=== PATIENT | male | born 1955 | race African-American/Black ===

== ENCOUNTER 2019-04-08 22:15 | Inpatient (IN) | payer MEDICAID ==
[~2019-04-08] VITALS: Ht 182.9 cm; Wt 133.4 kg
[2019-04-08] MEDS ORDERED: SODIUM CHLORIDE 0.9% 1,000 ML IV ONE (22:30)
[2019-04-08] MEDS ORDERED: ACETAMINOPHEN 500 MG TAB PO ONE (22:30)
[2019-04-08 23:49] LABS: Basophils # (auto) 0.1 10 ^3/uL (0-0.2); Eosinophils # (auto) 0 10 ^3/uL (0-0.8); Eosinophils % (auto) 0.1 % (0.0-7.0); Hematocrit 36.5 % (41.0-53.0); Hemoglobin 12.8 g/dL (13.5-17.5); Lymphocytes # (auto) 0.5 10 ^3/uL (0.4-5.4); Lymphocytes % (auto) 5.5 % (10.0-50.0); Mean Corpuscular Hemoglobin 30.5 pg (28.0-32.0); Mean Corpuscular Hgb Conc. 34.9 g/dL (32.0-36.0); Mean Corpuscular Volume 87.4 fL (80.0-100.0); Monocytes # (auto) 0.5 10 ^3/uL (0-1.3); Monocytes % (auto) 6.1 % (0.0-12.0); Neutrophils # (auto) 7.3 10 ^3/uL (1.6-8.6); Neutrophils % (auto) 87.3 % (37.0-80.0); Nucleated Red Blood Cells % 0.1 %; Platelet Count (auto) 72 10^3/uL (140-450); Red Blood Cells 4.18 10^6/uL (4.5-5.90); Red Cell Distribution Width 15.4 % (11.8-14.3); White Blood Cell 8.4 10^3/uL (4.4-10.8)
[2019-04-09 00:02] LABS: INR 1.3 (0.9-1.15); Partial Thromboplastin Time 31.8 sec (23.64-32.05)
[2019-04-09 00:07] LABS: Chloride 109 mmol/L (98-107); Potassium 3.9 mmol/L (3.5-5.1); Sodium 137 mmol/L (136-145)
[2019-04-09 00:13] LABS: Albumin 2.5 g/dL (3.4-5.0); Anion Gap 7 (5-15); BUN/Creatinine Ratio 19.3; Blood Urea Nitrogen 16 mg/dL (7-18); Calcium 8.2 mg/dL (8.5-10.1); Carbon Dioxide 21 mmol/L (21-32); GFR African American 120 mL/min; GFR Non-African American 99 mL/min; Glucose 119 mg/dL (74-106); Magnesium 1.6 mg/dL (1.6-2.6)
[2019-04-09 00:24] LABS: Urine Bacteria FEW /hpf (None Seen); Urine Blood 2+ /uL (Negative); Urine Mucus FEW (None Seen); Urine Specific Gravity 1.026 (1.001-1.035); Urine WBC 10 /hpf (0 - 3)
[2019-04-09 00:24] LABS: Alanine Aminotransferase 39 U/L (16-61); Alkaline Phosphatase 125 U/L (45-117); Aspartate Aminotransferase 40 U/L (15-37); Bilirubin, Total 3.6 mg/dL (0.2-1.0); Blood Alcohol < 3.0 mg/dL (0-5); Total Protein 5.8 g/dL (6.4-8.2)
[2019-04-09 00:38] LABS: Alcohol, Urine < 3.0 mg/dL (0-5); Amphetamine Screen, Urine NEGATIVE (NEGATIVE); Barbiturate Scree,Urine NEGATIVE (NEGATIVE); Benzodiazephine Screen, Urine NEGATIVE (NEGATIVE); Cannabinoid Screen, Urine NEGATIVE (NEGATIVE); Cocaine Screen, Urine NEGATIVE (NEGATIVE); Opiate Scree,Urine NEGATIVE (NEGATIVE); Phencyclidine Screen, Urine NEGATIVE (NEGATIVE)
[2019-04-09] MEDS ORDERED: NITROGLYCERIN 0.4 MG SL TAB SL PRN (02:45)
[2019-04-09] MEDS ORDERED: ONDANSETRON HCL 4 MG/2 ML VIAL IV PRN (02:45)
[2019-04-09] MEDS ORDERED: DEXTROSE (50%) 50ML SYRG IV PRN (02:45)
[2019-04-09] MEDS ORDERED: MORPHINE SULF INJ 2 MG/ML SYRINGE 1ML IV PRN (02:45)
[2019-04-09 04:00] VITALS: BP 109/62
--- NOTE | 2019-04-09 04:00 | NUR ---
Telemetry admit from ER LESLIE CARBAJAL admitted to Telemetry unit after SBAR received. Patient oriented to Angela Rodriguez, primary RN, unit, room, bed, and unit policies regarding patient care and visiting hours. Patient now on continuous telemetry monitoring, tele box # 12 and telemetry reading on arrival to unit is 73. Patient placed on bedside oxygen, weighed by bedscale and encouraged to call if they need something. All questions and concerns addressed, patient verbalized understanding. Note:
[2019-04-09] MEDS ORDERED: LACT10PA2 PO (04:51)
[2019-04-09] MEDS ORDERED: RIFA550T PO (04:51)
[2019-04-09] MEDS ORDERED: ATOR40TA52 PO (04:51)
[2019-04-09] MEDS ORDERED: METO25TA5 PO (04:51)
[2019-04-09 05:54] VITALS: BP 109/62
[2019-04-09] MEDS: InsuLIN REG 1unit/0.01ml Soln (100units/ml) SC SCH ×4 (06:05→21:29)
[2019-04-09] MEDS: ACCU-CHEK COMFORT CURVE STRIP VI SCH ×4 (06:05→21:30)
--- NOTE | 2019-04-09 08:00 | NUR ---
Opening Shift Note Assumed care of patient, awake and alert to self, place, and time. No S/S of distress/SOB or pain. Instructed on POC and to call for assist PRN, will continue to monitor for changes Q1hr and PRN. Bed alarm on for safety.
[2019-04-09 09:00] VITALS: BP 164/91
[2019-04-09] MEDS: FAMOTIDINE 20 MG TAB PO SCH ×2 (09:31→21:30)
[2019-04-09] MEDS: cefTRIAXone 1GM/50ML D5W 50 ML IV SCH (09:31)
[2019-04-09] MEDS: METOPROLOL SUCCINATE XL 50 MG TAB PO SCH (09:37)
[2019-04-09] MEDS ORDERED: LACTULOSE 20Gm/30ML SOLN PO SCH (10:00)
[2019-04-09] MEDS: rifAXIMin 550 MG TAB PO SCH ×2 (10:28→21:30)
[2019-04-09 13:00] VITALS: BP 141/77
[2019-04-09] MEDS ORDERED: FUROSEMIDE 40 MG/4 ML VIAL IV ONE (14:00)
[2019-04-09] MEDS ORDERED: ACETAMINOPHEN 325 MG TAB PO PRN (14:00)
[2019-04-09] MEDS ORDERED: POTASSIUM CHL 20 Meq TABLET PO ONE (14:00)
[2019-04-09] MEDS: LACTULOSE 20Gm/30ML SOLN PO SCH ×2 (16:26→21:29)
--- NOTE | 2019-04-09 16:30 | NUR ---
Patient alert and ambulating in room. Patient was encouraged to call for assistance, appears weak on his feet. Patient attempting stated that he feels much better now.
[2019-04-09 17:00] VITALS: BP 128/86
--- NOTE | 2019-04-09 17:30 | NUR ---
Patient in room uncomplaining. Stated that he does not take insulin at home, informed him of the sliding scale policy and that metformin is usually held during admission.
--- NOTE | 2019-04-09 18:35 | NUR ---
Authorization for disclosure of health information Patient signed form and it was faxed to [facility]. Will notify maintenance technician 3rd shift RN to follow up in the AM.
--- NOTE | 2019-04-09 19:47 | NUR ---
received pt from day rn poc reviewed
[2019-04-09 21:39] VITALS: BP 104/56
--- NOTE | 2019-04-10 00:33 | NUR ---
resting with eyes closed resp even and unlabored, call light within reach bed alarm intact
[2019-04-10 05:00] VITALS: BP 101/66
[2019-04-10] MEDS: LACTULOSE 20Gm/30ML SOLN PO SCH ×5 (05:37→22:00)
[2019-04-10 06:07] LABS: Hemoglobin 11.8 g/dL (13.5-17.5); Red Cell Distribution Width 15.2 % (11.8-14.3)
[2019-04-10 06:11] LABS: Hematocrit 33.6 % (41.0-53.0); Mean Corpuscular Hemoglobin 30.5 pg (28.0-32.0); Mean Corpuscular Hgb Conc. 35.2 g/dL (32.0-36.0); Mean Corpuscular Volume 86.7 fL (80.0-100.0); Platelet Count (auto) 54 10^3/uL (140-450); Red Blood Cells 3.87 10^6/uL (4.5-5.90); White Blood Cell 4.1 10^3/uL (4.4-10.8)
[2019-04-10] MEDS: InsuLIN REG 1unit/0.01ml Soln (100units/ml) SC SCH ×4 (06:14→22:25)
[2019-04-10] MEDS: ACCU-CHEK COMFORT CURVE STRIP VI SCH ×4 (06:15→22:26)
[2019-04-10 06:18] LABS: Albumin 2.4 g/dL (3.4-5.0); Calcium 8.2 mg/dL (8.5-10.1); Potassium 3.8 mmol/L (3.5-5.1)
[2019-04-10 06:22] LABS: Total Protein 5.4 g/dL (6.4-8.2)
--- NOTE | 2019-04-10 06:45 | NUR ---
REPORT GIVEN TO AM NURSE POC REVIEWED
[2019-04-10 07:01] LABS: Band Neutrophils % (manual) 0; Basophils % (manual) 0 (0.0-2.0); Blast Cells 0; Metamyelocytes % 0; Myelocytes % 0; Promyelocytes % 0; Reactive Lymphocytes 0
[2019-04-10 08:10] LABS: Eosinophils % (manual) 1 (0-7); Lymphocytes % (manual) 13 (10.0-50.0); Monocytes % (manual) 5 (0-12)
[2019-04-10 09:00] VITALS: BP 112/66
[2019-04-10] MEDS ORDERED: FUROSEMIDE 40 MG TAB PO ONE (11:15)
[2019-04-10] MEDS: cefTRIAXone 1GM/50ML D5W 50 ML IV SCH (11:30)
[2019-04-10] MEDS: METOPROLOL SUCCINATE XL 50 MG TAB PO SCH (11:30)
[2019-04-10] MEDS: FAMOTIDINE 20 MG TAB PO SCH ×2 (11:31→22:24)
[2019-04-10] MEDS: rifAXIMin 550 MG TAB PO SCH ×2 (12:05→22:24)
[2019-04-10 13:00] VITALS: BP 104/63
--- NOTE | 2019-04-10 13:45 | NUR ---
F/C DISCONTINUED PER MD ORDERS Addendum: 04/10/19 at 1346 by AYE SANCHEZ RN F/C DISCONTINUED AT 1215.
[2019-04-10 16:31] VITALS: BP 99/54
--- NOTE | 2019-04-10 19:15 | NUR ---
RECEIVED PT FROM DAY RN POC REVIEWED
--- NOTE | 2019-04-10 19:39 | NUR ---
PUT PAGE TO STOCK WETTER HOSPITALIST. AWAITING RETURN CALL. ENDORSED TO ANDREW VERAS RN THAT CALL WAS PLACED D/T PATIENT COMPLAINTS OF CHEST PAIN. ANDREW IS AT BEDSIDE W/ MYSELF COMPETING THE ASSESSMENT AND EKG. 1 TAB 0.4 NITRO SL WAS GIVEN AT 1911. 1911- 10/16 PAIN, 189/97, 82HR 1916, 139/80 89HR. Addendum: 04/11/19 at 0056 by Susan Donaldson RN DAY RN CHARTED ON WRONG PT, PT NEVER HAD CHEST PAIN NOR WAS NITRO GIVEN
[2019-04-10 22:00] VITALS: BP 107/56
--- NOTE | 2019-04-11 00:52 | NUR ---
RESTING WITH EYES CLOSED RESP EVEN AND UNLABORED, NO C/O PAIN OR DISCOMFORT, CALL LIGHT WITHIN REACH
[2019-04-11] MEDS: LACTULOSE 20Gm/30ML SOLN PO SCH ×2 (04:00→08:58)
--- NOTE | 2019-04-11 04:00 | NUR ---
PT REFUSED LACTULOSE EDUCATED PT ON PURPOSE OF MED
[2019-04-11 05:00] VITALS: BP 90/58
[2019-04-11] MEDS: InsuLIN REG 1unit/0.01ml Soln (100units/ml) SC SCH ×2 (05:15→12:06)
[2019-04-11] MEDS: ACCU-CHEK COMFORT CURVE STRIP VI SCH ×2 (05:15→12:07)
--- NOTE | 2019-04-11 06:44 | NUR ---
REPORT GIVEN TO AM NURSE POC REVIEWED
--- NOTE | 2019-04-11 08:00 | NUR ---
ASSESSMENT NOTE PT IS ALERT ORIENTED X4, SITTING AT THE SIDE OF THE BED, PT IS TALL AND BIG, LARGE SOFT ABDOMEN NOTED, ONE PLUS EDEMA IN BOTH LOWER EXTREMITIES, PAIN 0/10 AT THIS TIME, CALL LIGHT WITHIN REACH, NEXT TO NURSING STATION
[2019-04-11] MEDS: METOPROLOL SUCCINATE XL 50 MG TAB PO SCH (08:58)
[2019-04-11] MEDS: FAMOTIDINE 20 MG TAB PO SCH (08:58)
[2019-04-11] MEDS: cefTRIAXone 1GM/50ML D5W 50 ML IV SCH (08:58)
[2019-04-11 09:06] VITALS: BP 104/49
[2019-04-11] MEDS: rifAXIMin 550 MG TAB PO SCH (09:14)
--- NOTE | 2019-04-11 09:15 | NUR ---
IV insertion IV access obtained, via clean sterile technique by inserting 22 gauge catheter at after attempt(s). IV secured properly. No trauma to site. Patient tolerated procedure well.
[2019-04-11] MEDS ORDERED: FUROSEMIDE 40 MG TAB PO SCH (10:00)
--- NOTE | 2019-04-11 10:53 | NUR ---
DR VILCHIS AT BED SIDE FOLLOWING UP ON PT WITH DISCHARGE ZAYRA, PT VERBALIS UNDERSTANDING
[2019-04-11 12:19] VITALS: BP 104/49
[2019-04-11 13:00] VITALS: BP 97/51
--- NOTE | 2019-04-11 14:00 | NUR ---
FAMILY PATIENT'S DAUGHTER KIRAN AT BED SIDE
--- NOTE | 2019-04-11 14:25 | NUR ---
Discharge instructions given as ordered. Encourage to follow up with PMD as instructed. All questions and concerns addressed. Patient verbalized understanding. Medication reconciliation form completed and copy given to patient. . IV removed with catheter intact, pressure dressing applied. Telemetry unit returned to ICU. Patient taken to vehicle via wheelchair with all personal belongings, accompanied by staff and family member. No distress noted at time of departure.
== END 2019-04-11 14:25 | disposition home or self-care (01) | DRG 280 ==
LOC: ER 22:22 → TELE 22:23 → TELE-EAST 04-09 03:53
PROVIDERS: ADMIT Nurse Practitioner; ATTEND Internal Medicine
DX: K70.30 Alcoholic cirrhosis of liver without ascites (principal); E43 Unspecified severe protein-calorie malnutrition; E87.3 Alkalosis; D68.9 Coagulation defect, unspecified; D69.6 Thrombocytopenia, unspecified; K72.90 Hepatic failure, unspecified without coma; E87.70 Fluid overload, unspecified; E11.9 Type 2 diabetes mellitus without complications; E66.9 Obesity, unspecified; R50.9 Fever, unspecified; Z68.39 Body mass index [BMI] 39.0-39.9, adult
CPT/HCPCS: 36415; 70450; 71045; 80053; 80307; 80320; 81001; 82140; 82962; 83036; 83605; 83735; 83880; 84484; 85007; 85025; 85027; 85610; 85730; 87040; 87086; 87804; 93005; 96361; 96365; G0378; J0696; J1815

== ENCOUNTER 2020-12-14 21:13 | Inpatient (IN) | payer OTHER, MEDICAID ==
[~2020-12-14] VITALS: Ht 188 cm; Wt 122.0 kg
[~2020-12-14 21:13] MED LIST: ATOR40TA52 PO; LACT10PA2 PO; METO25TA5 PO; RIFA550T PO
[2020-12-14] MEDS ORDERED: ACETAMINOPHEN 500 MG TAB PO ONE (21:30)
[2020-12-14 23:25] LABS: Basophils # (auto) 0.1 10 ^3/uL (0-0.2); Basophils % (auto) 0.6 % (0.0-2.0); Eosinophils # (auto) 0 10 ^3/uL (0-0.8); Hematocrit 36.7 % (41.0-53.0); Hemoglobin 12.4 g/dL (13.5-17.5); Lymphocytes # (auto) 0.2 10 ^3/uL (0.4-5.4); Lymphocytes % (auto) 2.4 % (10.0-50.0); Mean Corpuscular Hemoglobin 30.5 pg (28.0-32.0); Mean Corpuscular Hgb Conc. 33.8 g/dL (32.0-36.0); Mean Corpuscular Volume 90.1 fL (80.0-100.0); Monocytes # (auto) 0.5 10 ^3/uL (0-1.3); Monocytes % (auto) 5.6 % (0.0-12.0); Neutrophils # (auto) 8.1 10 ^3/uL (1.6-8.6); Neutrophils % (auto) 91.4 % (37.0-80.0); Red Blood Cells 4.07 10^6/uL (4.5-5.90); Red Cell Distribution Width 15.6 % (11.8-14.3); White Blood Cell 8.8 10^3/uL (4.4-10.8)
[2020-12-14 23:41] LABS: INR 1.23 (0.9-1.15)
[2020-12-14] MEDS ORDERED: SODIUM CHLORIDE 0.9% 1,000 ML IV ONE ×2 (23:45)
[2020-12-14 23:59] LABS: Albumin 2.3 g/dL (3.4-5.0); BUN/Creatinine Ratio 16.7; Calcium 8.9 mg/dL (8.5-10.1); Magnesium 1.8 mg/dL (1.6-2.6); Potassium 3.3 mmol/L (3.5-5.1)
[2020-12-15 00:01] LABS: Lactic Acid w/Reflex 3.1 mmol/L (0.4-2.0)
[2020-12-15 00:04] LABS: Total Protein 5.6 g/dL (6.4-8.2)
[2020-12-15] MEDS ORDERED: VANCOMYCIN 1GM/250ML 250 ML IV ONE (00:45)
[2020-12-15] MEDS ORDERED: PIPERACILLIN-TAZOB 3.375GM 100 ML IV ONE (00:45)
[2020-12-15] MEDS ORDERED: LACTULOSE 20Gm/30ML SOLN PO ONE (00:45)
[2020-12-15] MEDS ORDERED: SODIUM CHLORIDE 0.9% 1,000 ML IV SCH (02:15)
[2020-12-15] MEDS ORDERED: ALBUMIN 5% 250 ML IV ONE ×2 (02:15→04:45)
[2020-12-15] MEDS ORDERED: ONDANSETRON HCL 4 MG/2 ML VIAL IV PRN (02:15)
[2020-12-15] MEDS ORDERED: MORPHINE SULFATE INJECTION 2 MG/ML SYRG IV PRN (02:15)
[2020-12-15] MEDS ORDERED: DEXTROSE (50%) 50ML SYRG IV PRN (02:15)
[2020-12-15] MEDS ORDERED: NITROGLYCERIN 0.4 MG SL TAB SL PRN (02:15)
[2020-12-15 04:00] LABS: Amphetamine Screen, Urine NEGATIVE (NEGATIVE); Barbiturate Scree,Urine NEGATIVE (NEGATIVE); Benzodiazephine Screen, Urine NEGATIVE (NEGATIVE); Cannabinoid Screen, Urine NEGATIVE (NEGATIVE); Cocaine Screen, Urine NEGATIVE (NEGATIVE); Opiate Scree,Urine NEGATIVE (NEGATIVE); Phencyclidine Screen, Urine NEGATIVE (NEGATIVE)
[2020-12-15 04:56] LABS: Urine Bacteria NONE SEEN /hpf (None Seen); Urine Blood TRACE /uL (Negative); Urine Hyaline Cast MOD /lpf (0 - 2); Urine Mucus FEW (None Seen); Urine Specific Gravity 1.016 (1.001-1.035); Urine WBC 2 /hpf (0 - 3)
[2020-12-15] MEDS: ACCU-CHEK COMFORT CURVE STRIP VI SCH ×4 (06:31→23:42)
[2020-12-15] MEDS: InsuLIN REG 1unit/0.01ml Soln (100units/ml) SC SCH ×4 (06:32→23:42)
[2020-12-15] MEDS ORDERED: NOREPINEPHRINE 8 MG/250ML KIT 250 ML IV SCH (06:45)
[2020-12-15] MEDS ORDERED: NOREPINEPHRINE 8 MG/250ML KIT 250 ML IV ONE (06:45)
[2020-12-15] MEDS: cefTRIAXone 1GM/50ML D5W 50 ML IV SCH (09:52)
[2020-12-15] MEDS: rifAXIMin 550 MG TAB PO SCH ×2 (09:53→23:20)
[2020-12-15] MEDS: PANTOPRAZOLE 40 MG TAB PO SCH (09:53)
[2020-12-15] MEDS: LACTULOSE 20Gm/30ML SOLN PO SCH ×2 (09:53→23:19)
[2020-12-15] MEDS ORDERED: IPRATROPIUM BROM 0.5 MG/2.5ML INH SOL NEB PRN (13:15)
[2020-12-15] MEDS ORDERED: ALBUTEROL SULF 2.5 MG/0.5ML(0.5%) NEB SOLN NEB PRN (13:15)
[2020-12-15 14:26] VITALS: BP 130/50
[2020-12-15 22:00] VITALS: BP 95/53
[2020-12-16 05:00] VITALS: BP 105/58
[2020-12-16] MEDS: InsuLIN REG 1unit/0.01ml Soln (100units/ml) SC SCH ×3 (07:00→17:00)
[2020-12-16] MEDS: ACCU-CHEK COMFORT CURVE STRIP VI SCH ×3 (07:22→17:00)
[2020-12-16 07:49] LABS: Basophils # (auto) 0 10 ^3/uL (0-0.2); Eosinophils # (auto) 0 10 ^3/uL (0-0.8); Eosinophils % (auto) 0.7 % (0.0-7.0); Hemoglobin 10.7 g/dL (13.5-17.5); Monocytes # (auto) 0.5 10 ^3/uL (0-1.3); Neutrophils # (auto) 5.4 10 ^3/uL (1.6-8.6); Nucleated Red Blood Cells % 0.1 %; Red Blood Cells 3.45 10^6/uL (4.5-5.90)
[2020-12-16 07:52] LABS: Basophils % (auto) 0.5 % (0.0-2.0); Hematocrit 31.2 % (41.0-53.0); Lymphocytes # (auto) 0.6 10 ^3/uL (0.4-5.4); Lymphocytes % (auto) 8.8 % (10.0-50.0); Mean Corpuscular Hgb Conc. 34.3 g/dL (32.0-36.0); Mean Corpuscular Volume 90.5 fL (80.0-100.0); Red Cell Distribution Width 15.9 % (11.8-14.3); White Blood Cell 6.5 10^3/uL (4.4-10.8)
[2020-12-16 08:09] LABS: Potassium 4.5 mmol/L (3.5-5.1)
[2020-12-16 08:14] LABS: INR 1.26 (0.9-1.15)
[2020-12-16 08:17] LABS: Albumin 2.2 g/dL (3.4-5.0); BUN/Creatinine Ratio 23.9; Calcium 8.4 mg/dL (8.5-10.1); Magnesium 2.2 mg/dL (1.6-2.6)
[2020-12-16 08:20] LABS: Bilirubin, Total 2.2 mg/dL (0.2-1.0)
[2020-12-16 09:00] VITALS: BP 101/64
[2020-12-16] MEDS: rifAXIMin 550 MG TAB PO SCH (10:10)
[2020-12-16] MEDS: cefTRIAXone 1GM/50ML D5W 50 ML IV SCH (10:10)
[2020-12-16] MEDS: PANTOPRAZOLE 40 MG TAB PO SCH (10:10)
[2020-12-16] MEDS: LACTULOSE 20Gm/30ML SOLN PO SCH (10:10)
[2020-12-16 13:00] VITALS: BP 105/53
[2020-12-16 16:45] VITALS: BP 100/55
== END 2020-12-16 20:30 | disposition home health service (06) | DRG 441 ==
LOC: EDBD 21:13 → ER 21:16 → TELE 12-15 02:03 → TELE-CENTR 12-15 21:17 → CENTRAL 12-16 11:45
PROVIDERS: ADMIT Nurse Practitioner; ATTEND Internal Medicine
DX: K72.90 Hepatic failure, unspecified without coma (principal); K76.7 Hepatorenal syndrome; N17.0 Acute kidney failure with tubular necrosis; G93.41 Metabolic encephalopathy; E43 Unspecified severe protein-calorie malnutrition; D68.4 Acquired coagulation factor deficiency; K70.30 Alcoholic cirrhosis of liver without ascites; I95.9 Hypotension, unspecified; D69.6 Thrombocytopenia, unspecified; E11.9 Type 2 diabetes mellitus without complications; I11.0 Hypertensive heart disease with heart failure; I50.9 Heart failure, unspecified; Z20.822 Contact with and (suspected) exposure to COVID-19; Z68.34 Body mass index [BMI] 34.0-34.9, adult
CPT/HCPCS: 36415; 70450; 71045; 80053; 80307; 80320; 81001; 82140; 82962; 83605; 83690; 83735; 83880; 84484; 85025; 85610; 87040; 87077; 87086; 87186; 87426; 87804; 93005; 94640; 96365; 96366; 96367; 96368; G0378; J0696; J1815; J2543